=== PATIENT | male | born 1995 | race Caucasian/White ===

== ENCOUNTER 2020-09-17 10:16 | Emergency (ER) | payer BC, OTHER ==
[2020-09-17 10:27] VITALS: O2SAT 97
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
[2020-09-17] MEDS ORDERED: XYLOCAINE 1% HCL 20 ML MDV IJ ONE (11:02)
[2020-09-17] MEDS ORDERED: BACIGUENT PACKET TP ONE (11:02)
[2020-09-17] MEDS ORDERED: BACIGUENT PACKET ONE (11:03)
[2020-09-17] MEDS ORDERED: XYLOCAINE 1% HCL 20 ML MDV ONE (11:04)
[2020-09-17 11:18] VITALS: BP 129/86; PULSE 68
== END 2020-09-17 11:22 | disposition home or self-care (01) ==
LOC: ED 10:16
DX: S61.012A Laceration without foreign body of left thumb without damage to nail, initial encounter (principal); X78.8XXA Intentional self-harm by other sharp object, initial encounter
CPT/HCPCS: 12001; 99283; A9270-GY

== ENCOUNTER 2020-09-26 08:41 | Emergency (ER) | payer BC ==
[2020-09-26 08:48] VITALS: BP 152/79
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
== END 2020-09-26 08:58 | disposition home or self-care (01) ==
LOC: ED 08:41
DX: Z48.1 Encounter for planned postprocedural wound closure (principal)
CPT/HCPCS: 99283; G0463

== ENCOUNTER → 2023-07-28 | Emergency (ER) | payer SELFPAY | LOC: ED 16:34 | DX: Z53.21 Procedure and treatment not carried out due to patient leaving prior to being seen by health care provider (principal) ==

== ENCOUNTER 2023-11-09 17:48 | Emergency (ER) | payer BC ==
[2023-11-09 18:16] VITALS: RESP 18; TEMP 97.2
[2023-11-09] MEDS ORDERED: TORAdol 30 mg Injection ONE (19:13)
[2023-11-09] MEDS: TORAdol 30 mg Injection IM ONE (19:15)
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
[2023-11-09] MEDS ORDERED: BACIGUENT PACKET ONE (19:35)
[2023-11-09 19:56] VITALS: BP 132/80; PULSE 94; O2SAT 97
[2023-11-09] MEDS: BACIGUENT PACKET TP ONE (19:58)
== END 2023-11-09 20:12 | disposition short-term general hospital (02) ==
LOC: ED 17:48
DX: T23.302A Burn of third degree of left hand, unspecified site, initial encounter (principal); X08.8XXA Exposure to other specified smoke, fire and flames, initial encounter
CPT/HCPCS: 96372; 99284; J1885; A9270-GY